=== PATIENT | male | born 1970 | race Caucasian/White ===

== ENCOUNTER 2020-07-06 16:56 | Inpatient (IN) ==
[2020-07-06] MEDS ORDERED: NS 0.9% 1000 ml BAG 1,000 ML IV ONE (17:04)
[2020-07-06 17:16] LABS: ABS Basophils 0.1 10^3/ul (0-0.2); ABS Eosinophils 0.1 10^3/ul (0-0.6); ABS Lymphocytes 2.3 10^3/ul (1.0-4.8); ABS Monocytes 1.3 10^3/ul (0-0.8); ABS Neutrophils 5.1 10^3/ul (1.5-7.7); Hematocrit 44 % (42-52); Hemoglobin 15.6 g/dL (14.0-18.0); Lymphocyte % 25.5 %; Mean Corpuscular HGB Conc 35 g/dL (31-36); Mean Corpuscular Hemoglobin 32 pg (27-31); Mean Corpuscular Volume 91 fL (80-94); Mean Platelet Volume 8.8 fL (7.4-10.4); Platelet Count 162 10^3/uL (150-450); Red Blood Count 4.86 10^6 /uL (4.18-5.48); Red Cell Distribution Width 14 % (10-15)
[2020-07-06 17:29] LABS: INR 1.11 (0.82-1.09)
[2020-07-06] MEDS ORDERED: Iodixanol (CONTRAST) 320 MG/ML 100 ML SDV IV ONE (17:32)
[2020-07-06 17:40] LABS: Albumin 4.7 g/dL (3.2-5.2); Albumin/Globulin Ratio 1.6 (1-3); BUN/Creatinine Ratio 10.8 (8-20); Calcium 9.6 mg/dL (8.6-10.3); EGFR African American 93.9 (>60); EGFR Non-African American 77.6 (>60); Globulin 2.9 g/dL (2-4); Potassium 3.8 mmol/L (3.5-5.0); Total Bilirubin 0.6 mg/dL (0.2-1.0); Total Protein 7.6 g/dL (6.4-8.9)
[2020-07-06] MEDS ORDERED: Morphine 4 MG/ML VIAL (1 ml) IV ONE (19:25)
[2020-07-06] MEDS ORDERED: Morphine 4 MG/ML VIAL (1 ml) ONE (19:44)
[2020-07-06] MEDS ORDERED: Witch Hazel PAD JAR TOPICAL PRN (21:52)
[2020-07-06] MEDS ORDERED: Albuterol HFA INHALER 8 gm MDI INH PRN (21:53)
[2020-07-06] MEDS ORDERED: Nitro Patch/OINT Remove PATCH TOPICAL ONE (23:00)
[2020-07-07] MEDS: Enoxaparin 40 MG/0.4 ML SYR SUBCUT SCH ×2 (00:19→21:03)
[2020-07-07] MEDS: Nitro 2% OINT (Nitroglycerin) 1 INCH/PAK TOPICAL PRN ×3 (00:20→21:04)
[2020-07-07] MEDS: DULoxetine DR 30 mg CAP PO SCH ×2 (00:20→21:05)
[2020-07-07] MEDS: Nitro OINT Remove TOPICAL SCH ×3 (05:59→20:50)
[2020-07-07] MEDS ORDERED: Aminophylline 25 MG/ML VIAL ONE (07:53)
[2020-07-07] MEDS ORDERED: Regadenoson 0.4 MG/5 ML SYRINGE ONE (07:53)
[2020-07-07] MEDS: Calcium Polycarbophil 625mg TB PO SCH ×2 (08:23→21:03)
[2020-07-07] MEDS: DULoxetine DR 60 mg CAP PO SCH (08:23)
[2020-07-07] MEDS: Aspirin EC 81 mg TAB.EC (enteric coated) PO SCH (08:23)
[2020-07-07] MEDS: Fluticasone NASAL SPRAY 50MCG 16 gm SPRAY BTL INTRANASAL SCH (08:32)
[2020-07-07] MEDS ORDERED: DULoxetine DR 30 mg CAP PO SCH (09:00)
[2020-07-07 09:26] LABS: ABS Basophils 0.1 10^3/ul (0-0.2); ABS Eosinophils 0.1 10^3/ul (0-0.6); ABS Lymphocytes 1.9 10^3/ul (1.0-4.8); ABS Monocytes 1.5 10^3/ul (0-0.8); ABS Neutrophils 7.1 10^3/ul (1.5-7.7); Eosinophil % 0.8 %; Hematocrit 41 % (42-52); Hemoglobin 14.2 g/dL (14.0-18.0); Lymphocyte % 18.2 %; Mean Corpuscular HGB Conc 34 g/dL (31-36); Mean Corpuscular Hemoglobin 32 pg (27-31); Mean Corpuscular Volume 93 fL (80-94); Mean Platelet Volume 8.6 fL (7.4-10.4); Platelet Count 135 10^3/uL (150-450); Red Blood Count 4.44 10^6 /uL (4.18-5.48); Red Cell Distribution Width 14 % (10-15); White Blood Count 10.7 10^3/uL (3.5-10.8)
[2020-07-07 09:43] LABS: BUN/Creatinine Ratio 12.6 (8-20); EGFR African American 92.9 (>60); EGFR Non-African American 76.8 (>60); Potassium 3.9 mmol/L (3.5-5.0)
[2020-07-08 04:55] LABS: HDL Cholesterol 36.2 mg/dL
[2020-07-08] MEDS ORDERED: Regadenoson 0.4 MG/5 ML SYRINGE ONE (07:22)
[2020-07-08] MEDS ORDERED: LORazepam 2 mg VIAL 1 ml ONE (08:27)
[2020-07-08] MEDS ORDERED: Lorazepam PYXIS KEY ONE (08:27)
[2020-07-08] MEDS: DULoxetine DR 60 mg CAP PO SCH (10:02)
[2020-07-08] MEDS: Calcium Polycarbophil 625mg TB PO SCH ×2 (10:02→20:41)
[2020-07-08] MEDS: Aspirin EC 81 mg TAB.EC (enteric coated) PO SCH (10:02)
[2020-07-08] MEDS: Fluticasone NASAL SPRAY 50MCG 16 gm SPRAY BTL INTRANASAL SCH (10:02)
[2020-07-08] MEDS ORDERED: Al Hydrox/Mg Hydrox/Simet LIQ 30 ML UDC PO ONE (15:20)
[2020-07-08] MEDS: Nitro OINT Remove TOPICAL SCH (15:20)
[2020-07-08] MEDS: DULoxetine DR 30 mg CAP PO SCH (20:40)
[2020-07-08] MEDS: Enoxaparin 40 MG/0.4 ML SYR SUBCUT SCH (20:40)
[2020-07-09] MEDS: Calcium Polycarbophil 625mg TB PO SCH ×2 (08:37→21:35)
[2020-07-09] MEDS: DULoxetine DR 60 mg CAP PO SCH (08:38)
[2020-07-09] MEDS: Aspirin EC 81 mg TAB.EC (enteric coated) PO SCH (08:39)
[2020-07-09] MEDS ORDERED: Al Hydrox/Mg Hydrox/Simet LIQ 30 ML UDC PO PRN (08:48)
[2020-07-09] MEDS: Fluticasone NASAL SPRAY 50MCG 16 gm SPRAY BTL INTRANASAL SCH (12:55)
[2020-07-09] MEDS ORDERED: Sucralfate 1 gm SUSP 1 GM/10 ML UDC PO SCH (16:30)
[2020-07-09] MEDS: Sucralfate 1 gm SUSP 1 GM/10 ML UDC PO SCH ×4 (16:51→21:23)
[2020-07-09] MEDS: DULoxetine DR 30 mg CAP PO SCH (21:21)
[2020-07-09] MEDS: Enoxaparin 40 MG/0.4 ML SYR SUBCUT SCH (21:22)
[2020-07-09] MEDS ORDERED: Calcium Polycarbophil 625mg TB PO SCH (21:45)
[2020-07-10] MEDS: Aspirin EC 81 mg TAB.EC (enteric coated) PO SCH (10:12)
[2020-07-10] MEDS: DULoxetine DR 60 mg CAP PO SCH (10:12)
[2020-07-10] MEDS: Sucralfate 1 gm SUSP 1 GM/10 ML UDC PO SCH ×4 (10:12→21:10)
[2020-07-10] MEDS: Calcium Polycarbophil 625mg TB PO SCH ×2 (10:12→21:10)
[2020-07-10] MEDS: Fluticasone NASAL SPRAY 50MCG 16 gm SPRAY BTL INTRANASAL SCH (10:13)
[2020-07-10] MEDS ORDERED: Nicotine GUM 4MG FRUIT FLAVOR PO PRN (10:36)
[2020-07-10] MEDS: DULoxetine DR 30 mg CAP PO SCH (21:10)
[2020-07-10] MEDS: Enoxaparin 40 MG/0.4 ML SYR SUBCUT SCH (21:11)
[2020-07-11 09:38] VITALS: BP 116/76
[2020-07-11] MEDS: Calcium Polycarbophil 625mg TB PO SCH (09:47)
[2020-07-11] MEDS: DULoxetine DR 60 mg CAP PO SCH (09:47)
[2020-07-11] MEDS: Sucralfate 1 gm SUSP 1 GM/10 ML UDC PO SCH (09:47)
[2020-07-11] MEDS: Fluticasone NASAL SPRAY 50MCG 16 gm SPRAY BTL INTRANASAL SCH (09:47)
[2020-07-11] MEDS: Aspirin EC 81 mg TAB.EC (enteric coated) PO SCH (09:47)
== END 2020-07-11 15:00 | disposition home or self-care (01) | DRG 243 ==
LOC: MEDTELE 16:56 → ED 16:56 → MEDTELE 21:59
PROVIDERS: ADMIT Internal Medicine; ATTEND Internal Medicine